=== PATIENT | female | born 1965 ===

== ENCOUNTER 2023-11-10 12:56 | Outpatient (POV) | payer MEDICARE, OTHER, SELFPAY ==
--- OUTSIDE RECORDS SUMMARY | 2023-11-10 13:02 | XMS_ITS | Clinical Summary ---
Author Name Unknown Address [address] [place] [address] Phone Organization [facility] Address [address] [place] [address] Phone Care Team Providers Care Soil Fertility Extension Specialist Name Role Phone Wilver CODY, Emilee Mahoney Unavailable Conditions or Problems Problem Name Problem Code Onset Date Status Entry Date Provider Comment Standard Description Annotate Health advice, education, or counseling 549379648 (SNOMED CT) 05/08 Active 05/08 Mandeep Montgomery MD Procedure carried out on subject COVID-19 coronavirus Pneumonia (J12.82) 788732876 (SNOMED CT) 05/07 Active 05/07 Catie Juan M COVID-19 MRSA Pneumonia 17869635 (SNOMED CT) 05/07 Active 05/07 Catie Juan M Staphylococcal pneumonia Acute respiratory failure with hypoxia 84145845 (SNOMED CT) 05/07 Active 05/07 Catie Juan M Acute respiratory failure Elevation of levels of liver transaminase levels 359482850 (SNOMED CT) 05/07 Active 05/07 Catie Juan M Elevated level of transaminase and lactic acid dehydrogenase Neutrophilic leukemoid reaction D72.823 (ICD-10-CM ) 05/07 Active 05/07 Catie Juan M Leukemoid reaction Thrombocytope asa, secondary 93124457 (SNOMED CT) 05/07 Active 05/07 Catie Juan M Acquired thrombocytopenia Thrush 05037342 (SNOMED CT) 05/07 Active 05/07 Catie Juan M Candidiasis of mouth Melena 0709333 (SNOMED CT) 05/07 Active 05/07 Catie Bustamante Sjogren's syndrome 99290629 (SNOMED CT) 05/07 Active 05/07 Catie Mcgowan Sjogren's syndrome DM Type II E11.9 (ICD-10-CM ) 05/07 Active 05/07 Catie Mcgowan Type 2 diabetes mellitus without complications Benign Essential Hypertension 26939192 (SNOMED CT) 05/07 Active 05/07 Catie Mcgowan Benign hypertension Medications Medication Instructions Start Date Stop Date Generic Name NDC Provider BENZONATATE 100 MG CAPS 03/14 benzonatate 98474395686 Samra Coronel BENZONATATE 100 MG CAPS Take 1 capsule by mouth three times a day as needed for cough 05/14 benzonatate 58259785806 Mandeep Montgomery MD LUBIPROSTONE 24 MCG CAPS 03/08 lubiprostone 91089617633 Samra Coronel DEXAMETHASONE 2 MG TABS 03/08 dexamethasone 44828476112 Samra Coronel NYSTATIN 841875 UNIT/ML SUSP 03/08 nystatin 00826733412 Samra Coronel AMOXICILLIN-POT CLAVULANATE 875-125 MG TABS 03/08 amoxicillin-pot clavulanate 34081276826 Samra Coronel SULFAMETHOXAZOLE-TRI METHOPRIM 800-160 MG TABS 03/08 sulfamethoxazole-tr imethoprim 73914694253 Samra Coronel LINZESS 145 MCG CAPS linaclotide 6888883 0130 Samra Coronel LUBIPROSTONE 24 MCG CAPS 06/10 lubiprostone 02782281448 Samra Coronel TIZANIDINE HCL 4 MG CAPS tizanidine 75350194472 Samra Coronel PILOCARPINE HCL 7.5 MG TABS pilocarpine hcl 18486066747 Samra Coronel SULFAMETHOXAZOLE-TRI METHOPRIM 800-160 MG TABS 07/27 sulfamethoxazole-tr imethoprim 32239746082 Samra Coronel METOPROLOL SUCCINATE ER 100 MG [id number] metoprolol succinate 83346753759 Samra Coronel NYSTATIN 827166 UNIT/ML SUSP 07/27 nystatin 57603731415 Samra Coronel AMOXICILLIN-POT CLAVULANATE 875-125 MG TABS 03/08 amoxicillin-pot clavulanate 69335603419 Samra Coronel ALBUTEROL SULFATE HFA 108 (90 Base) MCG/ACT AERS albuterol sulfate 40844741241 Parker Coronel HYDROXYCHLOROQUINE SULFATE 200 MG TABS hydroxychloroquine 35710811 301 Samra Coronel DEXAMETHASONE 2 MG TABS 03/08 dexamethasone 80835396928 Samra Coronel BENZONATATE 100 MG CAPS 07/27 benzonatate 68396469998 Samra Coronel ESTRADIOL 1 MG TABS estradiol 3730525129 2 Samra Coronel AMLODIPINE BESYLATE 10 MG TABS amlodipine 57428089341 Samra Coronel LEVOTHYROXINE SODIUM 100 MCG TABS levothyroxine 02361635817 Samra Coronel OMEPRAZOLE 40 MG CPDR omeprazole 07646786113 Samra Coronel ALLOPURINOL 100 MG TABS allopurinol 62887357094 Samra Coronel HYDROCODONE-ACETAMIN OPHEN 10-325 MG TABS hydrocodone -acetami nophen 70494791232 Samra Coronel CLONAZEPAM 1 MG TABS clonazepam 92303577 408 Samra Coronel AMITRIPTYLINE HCL 75 MG TABS amitriptyline 49577211441 Samra Coronel METFORMIN HCL 500 MG TABS metformin 06532533934 Samra Coronel Medications Administered No information available. Allergies, Adverse Reactions, Alerts No information available. Results Date Name Value Unit Range Flag Description Office Visit: 6- HFU ORALTOBACUSE Never Tobacco smoking status SMOK STATUS Never smoker Toba account collector smoking status MEDS REVIEW Done Documenta tion of current medications (procedure) Plan of Care Type Date Detail Referral Other Pending order Discontinue oral antibiotics Procedures No information available. Vital Signs Date Name Value Unit Description BMI (Body Mass Index) 21.79 kg/m2 Bod y Mass Index (Ratio) Body Temperature 97.1 [degF] temperat ure E&M BP Diastolic 80 mm[Hg] blood pressu re, diastolic BP Systolic 102 mm[Hg] blood pressur e, systolic Heart Rate 117 /min pulse rate Height 66 [in_us] height E&M Inhaled O2 3 L/min Inhaled O2 Respiratory Rate 24 /min respirat ory rate E&M Weight Measured 135 [lb_av] weight E& M Immunizations No information available. Advance Directives Directive Description Start Date NONE EST. AT THIS TIME
--- OUTSIDE RECORDS SUMMARY | 2023-11-10 13:02 | XMS_ITS | Continuity of Care Document ---
Author Name Unknown Address [address] [place], [place] [id number] Organization [facility] Phone Care Team Providers Care Systems Project Manager Name Role Phone SHANKAR SANDHU Admitting Unavailable SHANKAR SANDHU Unavailable Unavailable SHANKAR SANDHU Primary Attending Unavailable RUFINO RIVAS Primary Care ALLERGIES AND ADVERSE REACTIONS ALLERGIES AND ADVERSE REACTIONS Code System Allergy Substance Adverse Reaction Date Reaction (Severity) Comment Status Reported By Updated By [id number] SNOMED CT RACHEAL INHIBITORS Adverse reaction to substance cough active Physician [id number] on May 30, 2015 1:49:26 AM [facility] SULAR Adverse reaction to substance unknown active Physician [id number] on May 30, 2015 1:49:26 AM [facility] MEDICATIONS HOME MEDICATIONS Status RXNORM Medication Dose Route Frequency Dates Comments R eported By Updated By Drug Treatment Unknown DISCHARGE MEDICATIONS Status RXNORM Medication Dose Route Frequency Dates Comments Physic dale Updated By No Discharge Medication Info rmation Available INPATIENT MEDICATIONS Status RXNORM Medication Dose Route Frequency Rate Quantity Dates Comments Physician Updated By No Inpatient Medication Info rmation Available SOCIAL HISTORY SOCIAL HISTORY SNOMED-CT Social History Element Description Effective Dates Offered Cessation Comment UpdatedBy [id number] Smoking Status Unknown If Ever Smoked SOCIAL HISTORY - Gender Sex: Female SOCIAL HISTORY - Status : status i nformation is not available Intention in Next Year: intention information is not available SOCIAL HISTORY - Sexual Behavior Sexual Orientation Gender Identity SNOMED-CT Description SNO MED -CT Description Activity Level No of Partners Partner Type UpdatedBy Information is not available HEALTH CONCERNS Problems Concern Status Health Concern problem infor mation not available. Smoking Status Status Years Used Consumed packs p er day Health Concern smoking histo ry information not available. Family History Concern Status Health Concern family histor y information not available. ENCOUNTERS ENCOUNTER INFORMATION Reason for Visit N39.0 Admission July 01, 2023 7:59:[address] [address] Discharge July 01, 2023 7:59:00 PM [facility] DIS CHARGED TO HOME OR SELF CARE ENCOUNTER DIAGNOSES Notes information is not jj ilable. Code System Diagnosis Onset Date Diagnosis information is not available. ABSTRACT DIAGNOSES Code System Diagnosis Updated By N39.0 ICD10 URINARY TRACT IN FECTION, SITE NOT SPECIFIED [id number] on July 02, 2023 12:49:05 PM [place] N39.0 ICD10 URINARY TRACT IN [facility], SITE NOT SPECIFIED [id number] on July 02, 2023 12:49:05 PM [facility] CARE TEAM Care Systems Project Manager Role SHANKAR SANDHU Admitting SHANKAR SANDHU Referring SHANKAR SANDHU Primary Attending RUFINO RIVAS Primary Care CARE TEAM CARE ship washer Role on Team Status Start Date End Date Update d By PHOEBE Pimentel Referring normal July 01, 2023 5:00:00 AM [facility] July 01, 2023 5:00:00 AM [facility] [id number] on July 01, 2023 8:00:50 PM [facility] PHOEBE Pimentel Attending normal July 01, 2023 5:00:00 AM [facility] July 01, 2023 5:00:00 AM [facility] [id number] on July 01, 2023 8:00:50 PM [facility] PHOEBE Pimentel Admitting normal July 01, 2023 5:00:00 AM [facility] July 01, 2023 5:00:00 AM [facility] [id number] on July 01, 2023 8:00:50 PM [facility] EVELYN JOY APRN PCP normal July 01, 2023 5:00:00 AM [facility] July 01, 2023 5:00:00 AM [facility] [id number] on July 01, 2023 8:00:50 PM [facility]
--- OUTSIDE RECORDS SUMMARY | 2023-11-10 13:02 | XMS_ITS | Continuity of Care Document ---
Author Name Unknown Address [address] [place] [id number] Organization [facility] Phone Care Team Providers Care Photocopy Operator Name Role Phone RUFINO RIVAS Primary Care DIAZ TAMAYO Unavailable DIAZ TAMAYO Admitting DIAZ TAMAYO Primary Attending ALLERGIES AND ADVERSE REACTIONS ALLERGIES AND ADVERSE REACTIONS Code System Allergy Substance Adverse Reaction Date Reaction (Severity) Comment Status Reported By [place] [id number] SNOMED CT RACHEAL INHIBITORS Adverse reaction to substance cough active Physician [id number] on May 30, 2015 1:49:26 AM [facility] S[facility] Adverse reaction to substance unknown active Physician [id number] on May 30, 2015 1:49:26 AM [facility] RESULTS Patient: DENIZ Giles Date of : [birth year] LABORATORY RESULTS ORDER 100: CBC AUTO NO DIFF HEMOGRAM (LOINC: 02981-4) ORDER DATE: May 02, 2023 4:27:00 PM [place] Specimen Source: Whole Blood PERFORMING LAB: [address] [id number] Result Comment: Final Result Date: May 02, 2023 4:47:00 PM UTC (TECH: LT) LOINC TEST FLAG RESULT REFERENCE RANGE UPDA THOM BY 6690-2 Leukocytes [#/volume] in Blood by Automated count N 8.1 10^3/uL 4.5 10^3/uL - 11.5 10^3/uL May 02, 2023 4:47:00 PM UTC (TECH: LT) 789-8 Erythrocytes [#/volume] in Blood by Automated count N 4.35 10^6/uL 4.25 10^6/uL - 5.57 10^6/uL May 02, 2023 4:47:00 PM UTC (TECH: LT) 718-7 Hemoglobin [Mass/volume] in Blood N 12.3 g/dL 12.0 g/dL - 15.7 g/dL May 02, 2023 4:47:00 PM UTC (TECH: LT) 31641-9 Hematocrit [Volume Fraction] of Blood N 38.8 % 36.0 % - 47.0 % May 02, 2023 4:47:00 PM UTC (TECH: LT) 787-2 Erythrocyte mean corpuscular volume [Entitic volume] by Automated count N 89.2 fl 80 fl - 95 fl May 02, 2023 4:47:00 PM UTC (TECH: LT) 51563-4 Erythrocyte mean corpuscular hemoglobin [Entitic mass] in Blood from Fetus by Automated count N 28.3 pg 27.0 pg - 34.0 pg May 02, 2023 4:47:00 PM UTC (TECH: LT) 76075-2 Erythrocyte mean corpuscular hemoglobin concentration [Mass/volume] in Blood from Fetus by Automated count L 31.7 g/dL 32.0 g/dL - 36.0 g/dL May 02, 2023 4:47:00 PM UTC (TECH: LT) 09344-4 Platelets [#/volume] in Blood N 280 10^3/uL 150 10^3/uL - 450 10^3/uL May 02, 2023 4:47:00 PM UTC (TECH: LT) 67664-6 Erythrocyte distribution width [Ratio] N 15.1 % 12.3 % - 15.1 % May 02, 2023 4:47:00 PM UTC (TECH: LT) 13404-7 Platelet mean volume [Entitic volume] in Blood by Automated count H 10.6 fl 7.4 fl - 10.4 fl May 02, 2023 4:47:00 PM UTC (TECH: LT) ORDER 200: RENAL FUNCTION PA DIANE (LOINC: 19124-5) ORDER DATE: May 02, 2023 4:27:00 PM UTC Specimen Source: Serum/Plasm a PERFORMING LAB: [address] [id number] Result Comment: Final Result Date: May 02, 2023 4:53:00 PM UTC (TECH: LT) LOINC TEST FLAG RESULT REFERENCE RANGE UPDA THOM BY 2951-2 Sodium [Moles/volume ] in Serum or Plasma N 136 mmol/L 136 mmol/L - 145 mmol/L May 02, 2023 4:53:00 PM [place] (TECH: LT) 2823-3 Potassium [Moles/volume] in Serum or Plasma N 4.1 mmol/L 3.5 mmol/L - 5.1 mmol/L May 02, 2023 4:53:00 PM UTC (TECH: LT) 2075-0 Chloride [Moles/volume] in Serum or Plasma N 100 mmol/L 98 mmol/L - 107 mmol/L May 02, 2023 4:53:00 PM UTC (TECH: LT) 2027-9 Carbon dioxide, tota l [Moles/volume] in Serum or Plasma N 28 mmol/L 21 mmol/L - 32 mmol/L May 02, 2023 4:53:00 PM [place] (TECH: LT) 2345-7 Glucose [Mass/volume ] in Serum or Plasma N 109 mg/dL 70 mg/dL - 110 mg/dL May 02, 2023 4:53:00 PM [place] (TECH: LT) 3094-0 Urea nitrogen [Mass/volume] in Serum or Plasma H 19 mg/dL 7 mg/dL - 18 mg/dL May 02 4:53:00 PM [place] (TECH: LT) 2160-0 Creatinine [Mass/volume] in Serum or Plasma N 0.9 mg/dL 0.6 mg/dL - 1.0 mg/dL May 02, 2023 4:53:00 PM [place] (TECH: LT) 92249-0 Glomerular filtratio n rate/1.73 sq M.predicted by Creatinine-based formula (MDRD) N 68 mL/min >60 May 02, 2023 4:53:00 PM UTC (TECH: LT) 1751-7 Albumin [Mass/volume ] in Serum or Plasma N 3.5 g/dL 3.4 g/dL - 5.0 g/dL April 4:53:00 PM [place] (TECH: LT) 53634-4 Calcium [Mass/volume ] in Serum or Plasma N 9.0 mg/dL 8.5 mg/dL - 10.1 mg/dL May 02, 2023 4:53:00 PM [facility] (TECH: LT) 67660-1 Calcium [Mass/volume ] corrected for total protein in Serum or Plasma N 9.4 mg/dL 8.5 mg/dL - 10.1 mg/dL May 02, 2023 4:53:00 PM [facility] (TECH: LT) 2777-1 Phosphate [Mass/volume] in Serum or Plasma N 3.9 mg/dL 2.5 mg/dL - 4.9 mg/dL May 02, 2023 4:53:00 PM [facility] (TECH: LT) LABORATORY NARRATIVE RESULTS Information is not available RADIOLOGY RESULTS Information is not available PATHOLOGY NARRATIVE RESULTS Information is not available MICROBIOLOGY RESULTS No Micro Labs/Results Exist for Patient BLOOD ADMIN RESULTS Information is not available TREATMENT PLAN DISCHARGE MEDICATIONS Status RXNORM Medication Dose Route Frequency Dates Comments U pdated By Patient discharge medication information is not available. PATIENT OPEN ORDERS Code System Description Frequency Occurrences Priority [place] [address] [facility] Collection method - Specimen ONE TIME 0 Routine May 02, 2023 4:27:00 PM [facility] BELKIS Giles MD [id number] on May 02, 2023 4:27:00 PM [facility] SCHEDULED PROCEDURES Code System Description Status Scheduled Date Upd ated By Patient scheduled procedure information is not available. MEDICATIONS HOME MEDICATIONS Status RXNORM Medication Dose [...] Description Effective Dates Offered Cessation Comment UpdatedBy [id number] Smoking Status Unknown If Ever Smoked SOCIAL HISTORY - Gender Sex: Female SOCIAL HISTORY - Sexual Behavior Sexual Orientation [...] available. ENCOUNTERS ENCOUNTER INFORMATION Reason for Visit LABS Admission May 02, 2023 4:18:[address] [address] Discharge May 02, 2023 4:18:00 PM UTC D ISCHARGED TO HOME OR SELF CARE ENCOUNTER DIAGNOSES Notes information is not jj ilable. Code System Diagnosis Onset Date Diagnosis information is not available. ABSTRACT DIAGNOSES Code System Diagnosis Updated By N18.2 ICD10 CHRONIC KIDNEY D ISEASE, STAGE 2 (MILD) [id number] on May 05, 2023 3:03:16 PM [facility] N18.2 ICD10 CHRONIC KIDNEY D ISEASE, STAGE 2 (MILD) [id number] on May 05, 2023 3:03:16 PM [facility] CARE TEAM Care Photocopy Operator Role RUFINO RIVAS Primary Care DIAZ TAMAYO Referring DIAZ TAMAYO Admitting DIAZ TAMAYO Primary Attending CARE TEAM CARE hunting and fishing guide Role on Team Status Start Date End Date Update d By EVELYN JOY APRN PCP normal May 02, 2023 5:00:00 AM [facility] May 02, 2023 5:00:00 AM [place] [id number] on May 02, 2023 4:20:27 PM [facility] BELKIS Giles MD Referring normal May 02, 2023 5:00:00 AM [facility] May 02, 2023 5:00:00 AM [facility] [id number] on May 02, 2023 4:20:27 PM [facility] BELKIS Giles MD Attending normal May 02, 2023 5:00:00 AM [facility] May 02, 2023 5:00:00 AM [place] [id number] on May 02, 2023 4:20:27 PM [facility] BELKIS Giles MD Admitting normal May 02, 2023 5:00:00 AM [facility] May 02, 2023 5:00:00 AM [facility] [id number] on May 02, 2023 4:20:27 PM [facility]
--- OUTSIDE RECORDS SUMMARY | 2023-11-10 13:02 | XMS_ITS | Continuity of Care Document ---
Author Name Unknown Address [address] [place], [place] [id number] Organization [facility] Phone Care Team Providers Care Optician Manager Name Role Phone SHANKAR SANDHU Admitting Unavailable SHANKAR SANDHU Unavailable Unavailable SHANKAR SANDHU Primary Attending Unavailable RUFINO RIVAS Primary Care ALLERGIES AND ADVERSE REACTIONS ALLERGIES AND ADVERSE REACTIONS Code System Allergy Substance Adverse Reaction Date Reaction (Severity) Comment Status Reported By Updated By [id number] SNOMED CT RACHEAL INHIBITORS Adverse reaction to substance cough active Physician [id number] on May 30, 2015 1:49:26 AM [facility] SULAR Adverse reaction to substance unknown active Physician [id number] on May 30, 2015 1:49:26 AM [facility] TREATMENT PLAN DISCHARGE MEDICATIONS Status RXNORM Medication Dose Route Frequency Dates Comments U pdated By Patient discharge medication information is not available. PATIENT OPEN ORDERS Code System Description Frequency Occurrences Priority Start Date Ordering Physician Updated By 630-4 JENNA Bacteria identified in Urine by Culture ONE TIME 0 Routine July 01, 2023 8:05:00 PM [facility] PHOEBE Pimentel [id number] on July 01, 2023 8:05:00 PM [facility] SCHEDULED PROCEDURES Code System Description Status [...] Description Effective Dates Offered Cessation Comment UpdatedBy [id number] Smoking Status Unknown If Ever Smoked SOCIAL [...] N39.0 Admission July 01, 2023 7:59:[address] [address] Discharge July 01, 2023 7:59:00 PM [facility] DIS CHARGED TO HOME OR SELF CARE ENCOUNTER DIAGNOSES Notes information is not jj ilable. Code System Diagnosis Onset Date Diagnosis information is not available. ABSTRACT DIAGNOSES Code System Diagnosis Updated By N39.0 ICD10 URINARY TRACT IN FECTION, SITE NOT SPECIFIED [id number] on July 01, 2023 8:05:24 PM [facility] CARE TEAM Care Optician Manager Role SHANKAR SANDHU Admitting SHANKAR SANDHU Referring SHANKAR SANDHU Primary Attending RUFINO RIVAS Primary Care CARE TEAM CARE instrumental musician Role on Team Status Start Date End Date Update d By PHOEBE Pimentel Referring normal July 01, 2023 5:00:00 AM [facility] July 01, 2023 7:59:00 PM [facility] [id number] on July 01, 2023 8:00:50 PM [facility] PHOEBE Pimentel Attending normal July 01, 2023 5:00:00 AM [facility] July 01, 2023 7:59:00 PM [facility] [id number] on July 01, 2023 8:00:50 PM [facility] PHOEBE Pimentel Admitting normal July 01, 2023 5:00:00 AM [facility] July 01, 2023 7:59:00 PM [facility] [id number] on July 01, 2023 8:00:50 PM [facility] EVELYN JOY APRN PCP normal July 01, 2023 5:00:00 AM [facility] July 01, 2023 7:59:00 PM [facility] [id number] on July 01, 2023 8:00:50 PM [facility]
--- OUTSIDE RECORDS SUMMARY | 2023-11-10 13:02 | XMS_ITS | Continuity of Care Document ---
Author Name Unknown Address [address] [place], [place] [id number] Organization [facility] Phone Care Team Providers Care Silversmith Apprentice Name Role Phone SHANKAR SANDHU Admitting Unavailable SHANKAR SANDHU Unavailable Unavailable SHANKAR SANDHU Primary Attending Unavailable RUFINO RIVAS Primary Care ALLERGIES AND ADVERSE REACTIONS ALLERGIES AND ADVERSE REACTIONS Code System Allergy Substance Adverse Reaction Date Reaction (Severity) Comment Status Reported By [place] [id number] SNOMED CT RACHEAL INHIBITORS Adverse reaction to substance cough active Physician [id number] on May 30, 2015 1:49:26 AM [facility] SULAR Adverse reaction to substance unknown active Physician [id number] on May 30, 2015 1:49:26 AM [facility] TREATMENT PLAN DISCHARGE MEDICATIONS Status RXNORM Medication Dose Route Frequency Dates Comments U pdated By Patient discharge medication information is not available. PATIENT OPEN ORDERS Code System Description Frequency Occurrences Priority Start Date Ordering Physician Updated By 630-4 JENNA Bacteria identified in Urine by Culture ONE TIME 0 Routine July 01, 2023 8:05:00 PM [facility] PHOEBE Pimentel [id number] on July 01, 2023 8:05:00 PM [facility] SCHEDULED PROCEDURES Code System Description Status Scheduled [...] Description Effective Dates Offered Cessation Comment UpdatedBy [id number] Smoking Status Unknown If Ever Smoked SOCIAL [...] N39.0 Admission July 01, 2023 7:59:[address] [address] Discharge July 01, 2023 7:59:00 PM [facility] DIS CHARGED TO HOME OR SELF CARE ENCOUNTER DIAGNOSES Notes information is not jj ilable. Code System Diagnosis Onset Date Diagnosis information is not available. ABSTRACT DIAGNOSES Code System Diagnosis Updated By N39.0 ICD10 URINARY TRACT IN FECTION, SITE NOT SPECIFIED [id number] on July 02, 2023 12:49:05 PM [facility] N39.0 ICD10 URINARY TRACT IN [facility], SITE NOT SPECIFIED [id number] on July 02, 2023 12:49:05 PM [facility] CARE TEAM Care Silversmith Apprentice Role SHANKAR SANDHU Admitting SHANKAR SANDHU Referring SHANKAR SANDHU Primary Attending RUFINO RIVAS Primary Care CARE TEAM CARE rn psych Role on Team Status Start Date End Date Update d By PHOEBE Pimentel Referring normal July 01, 2023 5:00:00 AM [facility] July 01, 2023 5:00:00 AM [facility] [id number] on July 01, 2023 8:00:50 PM [facility] PHOEBE Pimentel Attending normal July 01, 2023 5:00:00 AM [facility] July 01, 2023 5:00:00 AM [facility] [id number] on July 01, 2023 8:00:50 PM [facility] PHOEBE Pimentel Admitting normal July 01, 2023 5:00:00 AM [facility] July 01, 2023 5:00:00 AM [facility] [id number] on July 01, 2023 8:00:50 PM [facility] EVELYN JOY APRN PCP normal July 01, 2023 5:00:00 AM [facility] July 01, 2023 5:00:00 AM [facility] [id number] on July 01, 2023 8:00:50 PM [facility]
--- OUTSIDE RECORDS SUMMARY | 2023-11-10 13:02 | XMS_ITS | Continuity of Care Document ---
Author Name Unknown Address [address] [place] [phone] Organization [facility] Phone Care Team Providers Care Strategy Manager Name Role Phone RUFINO RIVAS Primary Care DIAZ TAMAYO Unavailable DIAZ TAMAYO Admitting DIAZ TAMAYO Primary Attending ALLERGIES AND ADVERSE REACTIONS ALLERGIES AND ADVERSE REACTIONS Code System Allergy Substance Adverse Reaction Date Reaction (Severity) Comment Status Reported By Updated [place] [id number] SNOMED CT RCAHEAL INHIBITORS Adverse reaction to substance cough active Physician [id number] on May 30, 2015 1:49:26 AM UT SULAR Adverse reaction to substance unknown active Physician [id number] on May 30, 2015 1:49:26 AM UT RESULTS Patient: DENIZ Giles Date of : [birth year] LABORATORY RESULTS ORDER 100: CBC AUTO NO DIFF HEMOGRAM (LOINC: 54046-8) ORDER DATE: May 02, 2023 4:27:00 PM UT Specimen Source: Whole Blood PERFORMING LAB: [address] [id number] Result Comment: Final Result Date: May 02, [...] 02, 2023 4:47:00 PM UTC (TECH: LT) 35867-7 Hematocrit [Volume Fraction] of Blood N 38.8 % 36.0 % - 47.0 % May 02, 2023 4:47:00 PM UTC (TECH: LT) 787-2 Erythrocyte mean corpuscular volume [Entitic volume] by Automated count N 89.2 fl 80 fl - 95 fl May 02, 2023 4:47:00 PM UTC (TECH: LT) 56504-1 Erythrocyte mean corpuscular hemoglobin [Entitic mass] in Blood from Fetus by Automated count N 28.3 pg 27.0 pg - 34.0 pg May 02, 2023 4:47:00 PM UTC (TECH: LT) 77001-4 Erythrocyte mean corpuscular hemoglobin concentration [Mass/volume] in Blood from Fetus by Automated count L 31.7 g/dL 32.0 g/dL - 36.0 g/dL May 02, 2023 4:47:00 PM UTC (TECH: LT) 24694-0 Platelets [#/volume] in Blood N 280 10^3/uL 150 10^3/uL - 450 10^3/uL May 02, 2023 4:47:00 PM UTC (TECH: LT) 47496-0 Erythrocyte distribution width [Ratio] N 15.1 % 12.3 % - 15.1 % May 02, 2023 4:47:00 PM UTC (TECH: LT) 23277-0 Platelet mean volume [Entitic volume] in Blood by Automated count H 10.6 fl 7.4 fl - 10.4 fl May 02, 2023 4:47:00 PM UTC (TECH: LT) ORDER 200: RENAL FUNCTION PA DIANE (LOINC: 14654-6) ORDER DATE: May 02, 2023 4:27:00 PM UTC Specimen Source: Serum/Plasm a PERFORMING LAB: [address] [id number] Result Comment: Final Result Date: May 02, [...] 02, 2023 4:53:00 PM [place] (TECH: LT) 36264-3 Glomerular filtratio n rate/1.73 sq M.predicted by Creatinine-based formula (MDRD) N 68 mL/min >60 May 02, 2023 4:53:00 PM UTC (TECH: LT) 1751-7 Albumin [Mass/volume ] in Serum or Plasma N 3.5 g/dL 3.4 g/dL - 5.0 g/dL April 4:53:00 PM [place] (TECH: LT) 31302-2 Calcium [Mass/volume ] in Serum or Plasma N 9.0 mg/dL 8.5 mg/dL - 10.1 mg/dL May 02, 2023 4:53:00 PM [facility] (TECH: LT) 28340-3 Calcium [Mass/volume ] corrected for total protein in Serum or Plasma N 9.4 mg/dL 8.5 mg/dL - 10.1 mg/dL May 02, 2023 4:53:00 PM [facility] (TECH: LT) 2777-1 Phosphate [Mass/volume] in Serum or Plasma N 3.9 mg/dL 2.5 mg/dL - 4.9 mg/dL May 02, 2023 4:53:00 PM [facility] (TECH: LT) LABORATORY NARRATIVE RESULTS Information is [...] Priority [place] [address] [facility] Collection method - Specimen ONE TIME 0 Routine May 02, 2023 4:27:00 PM [facility] BELKIS Giles MD [id number] on May 02, 2023 4:27:00 PM [facility] SCHEDULED PROCEDURES Code System Description Status Scheduled [...] Description Effective Dates Offered Cessation Comment UpdatedBy [id number] Smoking Status Unknown If Ever Smoked SOCIAL [...] LABS Admission May 02, 2023 4:18:[address] [id number] Discharge May 02, 2023 4:18:00 PM UT D ISCHARGED TO HOME OR SELF CARE ENCOUNTER DIAGNOSES Notes information is not jj ilable. Code System Diagnosis Onset Date Diagnosis information is not available. ABSTRACT DIAGNOSES Code System Diagnosis Updated By N18.2 ICD10 CHRONIC KIDNEY D ISEASE, STAGE 2 (MILD) [id number] on May 02, 2023 4:27:30 PM [facility] CARE TEAM Care Strategy Manager Role RUFINO RIVAS Primary Care DIAZ TAMAYO Referring DIAZ TAMAYO Admitting DIAZ TAMAYO Primary Attending CARE TEAM CARE scuba instructor Role on Team Status Start Date End Date Update d By EVELYN JOY APRN PCP normal May 02, 2023 5:00:00 AM [facility] May 02, 2023 4:18:00 PM [facility] [id number] on May 02, 2023 4:20:27 PM [facility] BELKIS Giles MD Referring normal May 02, 2023 5:00:00 AM [facility] May 02, 2023 4:18:00 PM [facility] [id number] on May 02, 2023 4:20:27 PM [facility] BELKIS Giles MD Attending normal May 02, 2023 5:00:00 AM [facility] May 02, 2023 4:18:00 PM [facility] [id number] on May 02, 2023 4:20:27 PM [facility] BELKIS Giles MD Admitting normal May 02, 2023 5:00:00 AM [facility] May 02, 2023 4:18:00 PM [facility] [id number] on May 02, 2023 4:20:27 PM [facility]
--- NOTE | 2023-11-10 13:08 | EXP.PAIN.OV ---
HPI Data of Consult Patient: new to practice Consult date: 11/10/23 Requesting Physician: Aniya Howe APRN Consult Narrative Reason for consult: Chronic low back pain with bilateral leg pain and neck pain History of present illness: Ms. Longoria is a 58 year old female who presents today as a new patient. She is a referral from Sonia Gutierrez. Today she rates her pain a 6 out of 10. Patient states she has pain throughout her neck and low back that does radiate into her bilateral lower extremities. Patient states this is been going on for 40 years and progressively worsened. Patient does state that this is a constant aching, throbbing pain that does interfere with her ability perform activities of daily living. Patient has had multiple pain management treatments in the past with injection therapy including epidurals and RFA's. Patient did have a spinal cord stimulator that was placed however was later removed due to nonfunctioning status. Patient has tried topicals and heat and ice with minimal relief as well as physical therapy and chiropractor however states that it made no improvement and only helped her neck some with the chiropractor. Patient states due to her history of a lumbar fusion and SI fusion that the chiropractor would not work on any of her lower lumbar pain and spine area. Patient states that she did go to neurosurgery and that they are wanting to do more conservative treatment and sent her to this office for that. Patient is interested in any help we may be able to provide and does have a history of even compression fracture. Patient states that she was on Boniva in the past however after 5 years was discontinued on this medication and told that she did not need any additional medications regarding this. She does state that she has not had any recent bone scans.Patient is currently managed with Percocet 10 3 times a day, clonazepam and Ambien from outside providers. Her Meng has been reviewed and is appropriate. CC: Aniya Howe APRN [facility] Disclaimer: The information contained in this section may have been updated after the patient was seen, as this information can be updated by other users. Medical History (Updated 11/10/23 @ 16:17 by Aniya Howe APRN) Insomnia Anxiety Sjogren's disease Hypothyroidism Diabetes Osteoarthritis CKD (chronic kidney disease) Melena IBS (irritable bowel syndrome) GERD (gastroesophageal reflux disease) Chronic constipation HTN (hypertension) JP (obstructive sleep apnea) Vulvodynia Migraines Headache Fibromyalgia Surgical History (Updated 11/10/23 @ 16:17 by Aniya Howe APRN) Hx of tonsillectomy H/O: hysterectomy H/O hernia repair Hx of cholecystectomy H/O section H/O breast augmentation History of lumbar fusion History of appendectomy Family History (Updated 11/10/23 @ 13:28 by Melisa Brandt RN) Other Depression Hepatitis C Hypertension Lung cancer Migraines Nephrolithiasis Ovarian cancer Stroke Social History (Updated 11/10/23 @ 13:52 by Melisa Brandt RN) Smoking Status: Never smoker alcohol intake: never current occupational status: other Travel in the last 8 weeks: None Review of Systems Review of Systems Review of systems:: pertinent systems reviewed and negative unless documented below Review of systems (narrative): Review of Systems: General: No recent weight changes, no fever, no sleep disturbances Respiratory: No cough, no shortness of air, no recurring pulmonary infections Cardiovascular/peripheral vascular: No chest pain, no palpitations, no edema, no shortness of breath Gastrointestinal: No new onset incontinence, normal bowel movements reported Genitourinary: No new onset incontinence Musculoskeletal: Neck pain, low back pain, bilateral leg pain Psychiatric: [Normal mood/affect] Neurological: [Denies weakness in extremities], [denies balance issues] Meds Home Medications and Allergies Home Medications Medication Instructions Recorded Confirmed Type amitriptyline 100 mg tablet 100 mg PO DAILY MOOD 11/10/23 11/10/23 History amlodipine 5 mg tablet 5 mg PO DAILY BLOOD PRESSURE 11/10/23 11/10/23 History atorvastatin 10 mg tablet 10 mg PO DAILY Cholesterol 11/10/23 11/10/23 History cevimeline 30 mg capsule 30 mg PO TID . 11/10/23 11/10/23 History clonazepam 0.5 mg tablet 0.5 mg PO BID Anxiety 11/10/23 11/10/23 History esomeprazole magnesium 40 mg 40 mg PO BID GERD 11/10/23 11/10/23 History capsule,delayed release ezetimibe 10 mg tablet (Zetia) 10 mg PO DAILY 11/10/23 11/10/23 History hydroxychloroquine 200 mg tablet 200 mg PO BID . 11/10/23 11/10/23 History levothyroxine 112 mcg tablet 112 mcg PO DAILY THYROID 11/10/23 11/10/23 History losartan 100 mg tablet 100 mg PO DIRECTED BLOOD 11/10/23 11/10/23 History PRESSURE metformin 500 mg tablet 500 mg PO BID Diabetes 11/10/23 11/10/23 History metoprolol succinate 100 mg 100 mg PO BID BLOOD PRESSURE 11/10/23 11/10/23 History tablet,extended release 24 hr oxycodone-acetaminophen 10 mg-325 1 tab PO Q6HP PRN Pain 11/10/23 11/10/23 History mg tablet tenapanor 50 mg tablet (Ibsrela) 50 mg PO DIRECTED . 11/10/23 11/10/23 History tizanidine 4 mg tablet 4 mg PO DIRECTED Pain 11/10/23 11/10/23 History zolpidem 12.5 mg tablet,extended 12.5 mg PO DAILY SLEEP 11/10/23 11/10/23 History release,multiphase New Prescriptions to Start Prescriptions: Allergies Allergy/AdvReac Type Severity Reaction Status Date / Time No Known Allergies Allergy Verified 11/10/23 13:10 Objective Narrative: Physical Exam: General: Alert and oriented x3, no acute distress, pleasant and cooperative Lungs: Respirations even and unlabored, symmetrical chest expansion Eyes: PERRL Musculoskeletal: Flexion and extension of lumbar [spine] somewhat guarded secondary to pain, [antalgic gait noted] Neurological: Speech clear, no gross sensory deficit Additional findings Additional findings: MRI thoracic spine without contrast October 01, 2023 Findings: Thoracic cord is normal in size and signal there are multiple perineural cyst. Spinal alignment is anatomic, incomplete burst fracture of T12 with fracture involving the anterior, superior and posterior endplate is associated with bone marrow and appears off tissue edema. There is mild 15 to 20% height loss and negligible posterior/superior cortical repulsion by 3 to 4 mm. No concerning marrow signal. Scattered disc desiccation without disc height loss. Facet arthropathy is overall moderate to advanced in degree without pericapsular or bone marrow edema to suggest active synovitis. T1-T11: No disc herniation no canal or foraminal stenosis T11-12: Disc retropulsed complex lesions the thecal sac no canal or foraminal stenosis MRI lumbar spine without contrast Findings: Thoracic findings are reported separately. There are 5 lumbar-type vertebral bodies. Spinal cord terminates at L1 and has normal signal. Nerve roots of the cauda equina are normal in morphology. There is lumbar lordosis. Surgical changes of L3-L4 interbody lesion and L3-L5 posterior fusion with posterior decompression, posterior decompression extends across L5 as well. Suspect body fusion along the posterior between L4-L5 and L5-S1. Chronic burst fracture deformity of T2 with mild height loss and negligible posterior superior cortical retropulsion by 3 to 4 mm. The background bone marrow signal is normal. Alignment is anatomic. There is multilevel disc desiccation. T12-L1: Maintained disc height with shallow right central through right subarticular disc protrusion no canal or foraminal stenosis. Mild facet arthrosis L1-2: Disc retropulsed complex flattens the thecal sac. There is no significant stenosis. Moderate facet arthrosis L2-L3: Maintained disc height with asymmetric left disc bulge. No significant canal stenosis or foraminal stenosis. Moderate facet arthrosis L3-L4: Surgical changes of the interbody and posterior fusion with posterior decompression. No canal or foraminal stenosis L4-L5: Surgical changes of posterior fusion and posterior decompression. Shallow central disc protrusion no canal or foraminal stenosis L5-S1: Status post posterior decompression. Maintained disc height without herniation or bulge no canal or foraminal stenosis Assessment and Plan *Assessment and plan (1) Degenerative disc disease, lumbar: Status: Acute Category: Medical Code(s): M51.36 - Other intervertebral disc degeneration, lumbar region (2) Neck pain: Status: Acute Category: Medical Code(s): M54.2 - Cervicalgia (3) Lumbar radiculopathy: Status: Acute Category: Medical Code(s): M54.16 - Radiculopathy, lumbar region (4) Chronic pain syndrome: Status: Acute Category: Medical Code(s): G89.4 - Chronic pain syndrome (5) Hx of decompressive lumbar laminectomy: Status: Acute Category: Surgical Code(s): Z98.890 - Other specified postprocedural states (6) S/P fusion of sacroiliac joint: Status: Acute Category: Surgical Code(s): Z98.1 - Arthrodesis status Plan Patient is experiencing chronic pain throughout her neck and low back with radiating symptoms into her lower extremities. I did discuss with the patient at length that she may benefit from a intrathecal pain pump trial. Patient has tried and failed conservative treatment. I did give educational handouts and reviewed over the risk and benefits of this procedure. Patient would like time to review over and think on this. I have counseled the patient that she can call us for her next follow-up appointment. Patient agrees with this plan of care. Patient has been instructed to contact the clinic with any concerns before the next appointment. Dr. Srivastava has reviewed this note and agrees with this plan of care. This note was dictated using voice recognition software and make contain errors or omissions.
[2023-11-10 13:09] VITALS: BP 102/61; PULSE 95; RESP 18; O2SAT 94; BMI 23.1
== END 2023-11-10 23:59 | disposition home or self-care (01) ==
PROVIDERS: Visit Provider Nurse Practitioner Family
DX: M51.16 Intervertebral disc disorders with radiculopathy, lumbar region (principal); M54.2 Cervicalgia; G89.4 Chronic pain syndrome; Z98.890 Other specified postprocedural states; Z98.1 Arthrodesis status; Z73.89 Other problems related to life management difficulty; Z79.899 Other long term (current) drug therapy
CPT/HCPCS: 99202; G0463